=== PATIENT | female | born 1960 | race Caucasian/White ===

== ENCOUNTER → 2023-12-27 10:39 | Outpatient (CLI) | payer OTHER, SELFPAY ==
--- NOTE | 2023-12-27 10:42 | DI.RAD.S_ITS ---
PROCEDURE: XR SHOULDER LT MIN 2V INDICATIONS: Fall onto left shoulder, pain, r/o fracture TECHNIQUE: 2 views of the shoulder were acquired. COMPARISON: None. FINDINGS: Bones: No fractures or dislocations. No suspicious bony lesions. Visualized ribs appear intact. Soft tissues: No suspicious soft tissue calcifications. IMPRESSION: No acute bony abnormality. Dictated by: Leeanne Mukherjee MD, PhD on 12/27/2023 at 11:00 Approved by: Leeanne Mukherjee MD, PhD on 12/27/2023 at 11:00
== END ==
PROVIDERS: Family Provider Family Medicine; PCP Family Medicine; Referring Provider Physician Assistant Medical; Visit Provider Physician Assistant Medical
DX: S49.92XA Unspecified injury of left shoulder and upper arm, initial encounter (principal); W19.XXXA Unspecified fall, initial encounter
CPT/HCPCS: 73030